=== PATIENT | female | born 1945 | race Caucasian/White ===

== ENCOUNTER 2017-11-18 09:28 | Outpatient (CLI) | payer MEDICARE, MEDICAID ==
[2017-11-18] VITALS (12 sets, daily range): BP systolic 153–190; BP diastolic 67–93; PULSE 76–103; TEMP 97.9
[~2017-11-18 09:28] MED LIST: AMBIEN 10MG10 MG PO; AMITRIPTYLINE H10 M1 PO; COLACE 100100 MG/CAP PO; DAZIDOX10 MG PO; LIPITOR 10MG10 MG PO; PRILOSEC 20MG20 MG PO; PRINIVIL40 MG PO; RESTORIL 1515 MG/CAP PO; RT SPIRIVA18 MCG IH; SYNTHROID 0.0.025 MG PO; TOPROL XL 50MG50 MG PO; VITAMIN D 1001000 IU PO; VITAMIN D31000 IU PO; ZANTAC 150MG T150 MG PO
[2017-11-18] MEDS ORDERED: PRILOSEC 20MG20 MG PO (09:46)
== END 2017-11-18 16:07 | disposition home or self-care (01) ==
LOC: COL.RAD 09:28
DX: C34.11 Malignant neoplasm of upper lobe, right bronchus or lung (principal); I10 Essential (primary) hypertension
CPT/HCPCS: J2250

== ENCOUNTER 2018-01-28 08:30 | Outpatient (RCR) | payer MEDICARE, MEDICAID ==
[2018-01-17 10:33] VITALS: BP 156/82; PULSE 98; TEMP 97
[2018-01-17 11:31] LABS: MEAN CELL VOLUME 93 fl (80.0-100.0); MEAN CORPUSCULAR HGB CONC 32 g/dl (33.0-37.0); MEAN PLATELET VOLUME 10.2 fl (7.4-10.4); PLATELET COUNT 201 K/mm3 (130-400); RED BLOOD COUNT 2.52 M/mm3 (4.10-5.30); REDCELL DISTRIBUTION WIDTH-CV 18.9 % (11.5-14.5)
[2018-01-17 11:38] LABS: HEMATOCRIT 23.3 % (37.0-47.0); HEMOGLOBIN 7.5 g/dl (12.5-16.0); MEAN CORPUSCULAR HEMOGLOBIN 30 pg (27.0-31.0)
[2018-01-17 11:41] LABS: ALBUMIN 3.2 gm/dL (3.5-5.0); BILIRUBIN,TOTAL 0.3 mg/dL (0.0-1.0); CALCIUM 9.1 mg/dL (8.4-10.2); CREATININE, serum 1.06 mg/dL (0.52-1.25); MAGNESIUM 1.8 mg/dL (1.6-2.3); POTASSIUM 4.4 mmol/L (3.4-5.0); TOTAL PROTEIN 5.9 gm/dL (6.4-8.2)
[2018-01-17 12:11] LABS: BAND 10 % (0-10); LYMPHOCYTE 23 % (20.0-51.0); METAMYELOCYTE 1 % (0-0); NEUTROPHILS 65 % (42.0-75.2); PLATELET ESTIMATE NORMAL (NORMAL)
[2018-01-20 10:30] VITALS: BP 166/65; PULSE 96; TEMP 98
[2018-01-20 10:35] LABS: MEAN CELL VOLUME 94 fl (80.0-100.0); MEAN CORPUSCULAR HGB CONC 32 g/dl (33.0-37.0); MEAN PLATELET VOLUME 9.6 fl (7.4-10.4); PLATELET COUNT 185 K/mm3 (130-400); RED BLOOD COUNT 2.58 M/mm3 (4.10-5.30); REDCELL DISTRIBUTION WIDTH-CV 20.1 % (11.5-14.5)
[2018-01-20 10:36] LABS: HEMATOCRIT 24.3 % (37.0-47.0); HEMOGLOBIN 7.7 g/dl (12.5-16.0); MEAN CORPUSCULAR HEMOGLOBIN 30 pg (27.0-31.0)
[2018-01-20 10:49] LABS: ALBUMIN 3.5 gm/dL (3.5-5.0); BILIRUBIN,TOTAL 0.4 mg/dL (0.0-1.0); CALCIUM 9.2 mg/dL (8.4-10.2); CREATININE, serum 1.17 mg/dL (0.52-1.25); POTASSIUM 4.3 mmol/L (3.4-5.0); TOTAL PROTEIN 6.3 gm/dL (6.4-8.2)
[2018-01-20 13:08] LABS: ANISOCYTOSIS 2+; BAND 1 % (0-10); HYPOCHROMIA 2+; LYMPHOCYTE 2 % (20.0-51.0); MICROCYTOSIS 1+; NEUTROPHILS 97 % (42.0-75.2); PLATELET ESTIMATE NORMAL (NORMAL)
[2018-01-24 08:41] VITALS: BP 172/85; PULSE 120; TEMP 97.8
[~2018-01-28] VITALS: Ht 160 cm; Wt 43.9 kg
[2018-01-28 08:51] VITALS: BP 156/70; PULSE 116; TEMP 98.6
[2018-01-28 09:18] LABS: HEMOGLOBIN 12.1 g/dl (12.5-16.0); MEAN CELL VOLUME 90 fl (80.0-100.0); MEAN CORPUSCULAR HEMOGLOBIN 30 pg (27.0-31.0); MEAN CORPUSCULAR HGB CONC 34 g/dl (33.0-37.0); MEAN PLATELET VOLUME 11.6 fl (7.4-10.4); PLATELET COUNT 91 K/mm3 (130-400); RED BLOOD COUNT 4.02 M/mm3 (4.10-5.30); REDCELL DISTRIBUTION WIDTH-CV 17.1 % (11.5-14.5)
[2018-01-28 09:19] LABS: HEMATOCRIT 36.1 % (37.0-47.0)
[2018-01-28 09:28] LABS: ALBUMIN 3.2 gm/dL (3.5-5.0); BILIRUBIN,TOTAL 0.5 mg/dL (0.0-1.0); CALCIUM 8.8 mg/dL (8.4-10.2); CREATININE, serum 0.98 mg/dL (0.52-1.25); MAGNESIUM 1.3 mg/dL (1.6-2.3); TOTAL PROTEIN 6.2 gm/dL (6.4-8.2)
[2018-01-28 10:26] LABS: BAND 13 % (0-10); HYPOCHROMIA 1+; LYMPHOCYTE 8 % (20.0-51.0); NEUTROPHILS 78 % (42.0-75.2); PLATELET ESTIMATE DECREASED (NORMAL)
[2018-01-28 10:28] LABS: POLYCHROMASIA 1+
== END 2018-02-10 14:15 | disposition home or self-care (01) ==
LOC: EUO 08:30
PROVIDERS: Internal Medicine
DX: C34.11 Malignant neoplasm of upper lobe, right bronchus or lung (principal); Z45.2 Encounter for adjustment and management of vascular access device; Z95.9 Presence of cardiac and vascular implant and graft, unspecified; Z51.11 Encounter for antineoplastic chemotherapy; Z48.00 Encounter for change or removal of nonsurgical wound dressing
CPT/HCPCS: C1751; C1894